=== PATIENT | female | born 1940 | race Caucasian/White ===

== ENCOUNTER 2017-01-07 09:14 | Inpatient (IN) | payer MEDICARE, BC ==
[~2017-01-07 09:14] MED LIST: ACETAMINOPHEN650 M4 PO; ADULT ASPIRIN81 MG PO; ALTACE10 M4 PO; ALTACE10 MG PO; ALTACE2.5 MG; AMBIEN5 MG; AMLODIPINE BESY10 M1 PO; AMOXIL500 M; ARANESP25 MCG/0.4 IJ; ASPIRIN81 M1 PO; BABY ASPIRIN81 MG; BACTROBAN15 GM TP; BACTROBAN22 GM TOP; BENEFIBER DRIN; BL MAXEPA CAPSU1 CAP PO; CATAPRES0.1 M1 PO; CATAPRES0.1 MG; CATAPRES0.1 MG PO; CLONIDINE HCL0.1 M2 PO; COL-RITE100 MG; COLACE-T100 MG; COLACE100 MG PO; COMPAZINE25 MG/SUPP PR; CULTURELLE1 CAP; DELTASONE5 MG PO; DOCUSATE CALCI100 MG PO; DOCUSATE CALCI240 M1 PO; DOCUSATE SODIU100 M2 PO; DULCOLAX10 MG/SUPP; DULCOLAX10 MG/SUPP RC; DUONEB 2.5-0.5 M3 ML IH; DUONEB 2.5-0.5MG3 M1 AERO NEB; ELAVIL25 MG; EPOGEN; FE-TABS325 ( 65 ) PO; FISH OIL 1,0001 CA PO; FISH OIL SOFTGE1 CAP; FOLIC ACID1 M1 PO; FOLIC ACID1 MG; FOLIC ACID1 MG PO; GLUCAGON1 MG/KIT IM; GLYBURIDE2.5 MG; GLYBURIDE2.5 MG PO; GLYBURIDE5 MG; GLYCOLAX14 EA; GUAIFENESIN-CODE5 ML PO; HAIR, SKIN & N1 EACH PO; HIPREX1 G; HUMALOG100 U/ML SQ; HUMALOG100 UNITS/; HUMALOG100 UNITS/ SC; HYDROCHLOROTHIA25 MG; INDERAL LA80 MG; INDERIDE; IRON325 ( 65 ); K-DUR10 MEQ PO; K-DUR20 MEQ PO; KLOR-CON 1010 MEQ; KLOR-CON M2020 MEQ PO; LANTUS100 U/ML; LASIX40 MG PO; LASIX80 MG; LASIX80 MG PO; LEVAQUIN500 M1 PO; LEVAQUIN500 MG; LEVAQUIN750 MG PO; LEVEMIR100 U/M; LEVEMIR100 U/M SC; LEVEMIR100 U/M SQ; LEVEMIR100 U/ML; LEVEMIR100 U/ML SQ; LEVEMIR100 UNITS/ SC; LEVMIR; LEVOTHROID25 MCG PO; LISINOPRIL20 MG; LOMOTIL 2.5-0.1 EACH PO; LOMOTIL1 TA3 PO; LOPRESSOR25 MG/TA1 GT; LOPRESSOR25 MG/TA2 PO; MICRONASE2.5 MG; MILK OF MA400 MG/5 M; MILK OF MAGNESIA PO; MIRALAX17 G2 PO; MIRALAX17 GM PO; MULTIVITAMIN W/1 T PO; MULTIVITAMIN1 TAB; MYCOSTATIN15 GM TP; NEURONTIN300 MG; NORCO 5/325 TAB1 TAB; NORVASC10 M2 PO; NORVASC10 MG; NORVASC10 MG PO; NORVASC5 MG; NOVOLIN R100 U/ML; NOVOLOG100 U/M; NYSTATIN1 EA10 TOP; NYSTATIN15 G1 TOP; NYSTATIN15 G1 TP; NYSTATIN15 GM TP; NYSTEX30 GM TOP; OCUVITE LUTEIN1 CAP PO; OCUVITE SOFTGE1 EACH PO; ONDANSETRON ODT4 M1 PO; OXYGEN; PHOSLO667 M1 PO; PHOSLO667 MG PO; PLAVIX75 M1 PO; POTASSIUM CHLO10 MEQ; PREDNISONE10 M1 PO; PREDNISONE5 MG PO; PRINIVIL10 MG; PROAIR HFA8.5 GM INH; PROTONIX40 MG PO; QUESTRAN LIGH4 G/PKT; RAMIPRIL2.5 MG PO; RENVELA800 M1 PO; SENNA PLUS TAB1 EACH PO; SENNA8.6 M3 PO; SENOKOT8.6 M1 PO; SENOKOT8.6 MG PO; SILVADENE20 GM; SYNTHROID25 MCG PO; SYNTHROID50 MC1 PO; TESSALON PERLE100 M1 PO; THERA M PLUS TA1 TAB PO; TYLENOL SU650 MG/SU1 PR; TYLENOL325 M2 PO; TYLENOL325 MG; TYLENOL325 MG PO; VIT C 500 MG-E500 MG; VITAMIN D; ZITHROMAX250 MG PO; ZOCOR40 MG PO; ZOFRAN4 M2 PO; [UNRECOGNIZED DRUG - OTHER]; [UNRECOGNIZED DRUG - OTHER] OP; [UNRECOGNIZED DRUG - OTHER] PO
[2017-01-07] MEDS ORDERED: RENVELA800 M1 PO (10:19)
[2017-01-07] MEDS ORDERED: PRESERVISION A1 EAC3 PO (10:19)
[2017-01-07] MEDS ORDERED: LOMOTIL 2.5-0.1 EACH PO (10:21)
[2017-01-07] MEDS ORDERED: LEVEMIR100 UNITS/ SC (22:10)
[2017-01-08 06:34] LABS: ANION GAP 18 mmol/L (0-20); BLOOD UREA NITROGEN 44 mg/dl (6-24); CALCIUM 8.6 mg/dl (8.5-10.5); CARBON DIOXIDE-VENOUS 25 mmol/L (22-32); CHLORIDE 98 mmol/l (96-110); CREATININE 5.83 mg/dl (0.50-1.10); GLUCOSE 117 mg/dL (70-110); MAGNESIUM 1.9 mg/dl (1.8-2.6); PHOSPHOROUS 6.2 mg/dl (2.5-4.9); POTASSIUM 4.9 mmol/L (3.7-5.1); SODIUM 136 mmol/L (135-145); eGFR VALUE FOR BLACK 7 mL/Min
[2017-01-09 06:00] LABS: BASO % 0.6 % (0-2); BASO ABSOLUTE COUNT 0.1 tho/cmm (0.0-0.2); EOS % 3.3 % (0-7); EOSINOPHIL ABSOLUTE COUNT 0.4 tho/cmm (0.0-0.7); HCT-HEMATOCRIT 30.7 % (34.0-49.0); HGB-HEMOGLOBIN 9.7 gm/dl (12.0-15.5); IMMATURE GRANULOCYTES ABSOLUTE 0.04 tho/cmm (0-0.03); IMMATURE GRANULOCYTES PERCENT 0.4 % (0-0.3); LYMPH % 22.9 % (20-45); LYMPH ABSOLUTE COUNT 2.5 tho/cmm (0.8-4.5); MCH (MEAN CORPUSCULAR HGB) 30.3 pg (28.0-32.0); MCHC MEAN CORPUSCULAR HGB CONC 31.6 % (32.0-36.0); MCV (MEAN CELL VOLUME) 95.9 fl (82.0-96.0); MONO % 5.5 % (0-12); MONOCYTE ABSOLUTE COUNT 0.6 tho/cmm (0.0-1.2); NEUTROPHIL ABSOLUTE COUNT 7.3 tho/cmm (1.6-8.0); NEUTROPHIL-AUTOMATED 7.3 tho/cmm (1.6-8.0); NEUTROPHILS % 67.3 % (40-80); PLATELET COUNT 225 tho/cmm (150-450); RED CELL DISTRIBUTION WIDTH 16.8 % (12.4-16.4); WHITE BLOOD COUNT 10.8 tho/cmm (4.0-10.0)
[2017-01-09 06:14] LABS: ALBUMIN 2.6 g/dl (3.5-5.0); ANION GAP 14 mmol/L (0-20); BLOOD UREA NITROGEN 27 mg/dl (6-24); C-REACTIVE PROTEIN 9.2 mg/dl (0-0.9); CALCIUM 8.4 mg/dl (8.5-10.5); CARBON DIOXIDE-VENOUS 27 mmol/L (22-32); CHLORIDE 96 mmol/l (96-110); GLUCOSE 135 mg/dL (70-110); PHOSPHOROUS 5.1 mg/dl (2.5-4.9); POTASSIUM 4.1 mmol/L (3.7-5.1); SODIUM 133 mmol/L (135-145); eGFR VALUE FOR BLACK 12 mL/Min
[2017-01-09 06:19] LABS: CREATININE 4.01 mg/dl (0.50-1.10)
[2017-01-10 05:59] LABS: BASO % 0.7 % (0-2); BASO ABSOLUTE COUNT 0.1 tho/cmm (0.0-0.2); EOS % 3.6 % (0-7); EOSINOPHIL ABSOLUTE COUNT 0.4 tho/cmm (0.0-0.7); HCT-HEMATOCRIT 29.7 % (34.0-49.0); HGB-HEMOGLOBIN 9.6 gm/dl (12.0-15.5); IMMATURE GRANULOCYTES ABSOLUTE 0.05 tho/cmm (0-0.03); IMMATURE GRANULOCYTES PERCENT 0.5 % (0-0.3); LYMPH % 23.2 % (20-45); LYMPH ABSOLUTE COUNT 2.2 tho/cmm (0.8-4.5); MCH (MEAN CORPUSCULAR HGB) 30.7 pg (28.0-32.0); MCHC MEAN CORPUSCULAR HGB CONC 32.3 % (32.0-36.0); MCV (MEAN CELL VOLUME) 94.9 fl (82.0-96.0); MEAN PLATELET VOLUME 9.1 cmc (9.4-12.4); MONO % 7.3 % (0-12); MONOCYTE ABSOLUTE COUNT 0.7 tho/cmm (0.0-1.2); NEUTROPHIL ABSOLUTE COUNT 6.2 tho/cmm (1.6-8.0); NEUTROPHIL-AUTOMATED 6.2 tho/cmm (1.6-8.0); NEUTROPHILS % 64.7 % (40-80); PLATELET COUNT 221 tho/cmm (150-450); RED BLOOD COUNT 3.13 mil/cmm (4.00-5.20); RED CELL DISTRIBUTION WIDTH 16.7 % (12.4-16.4); WHITE BLOOD COUNT 9.7 tho/cmm (4.0-10.0)
[2017-01-10 06:14] LABS: ANION GAP 14 mmol/L (0-20); C-REACTIVE PROTEIN 5.5 mg/dl (0-0.9); CALCIUM 8.3 mg/dl (8.5-10.5); CARBON DIOXIDE-VENOUS 26 mmol/L (22-32); CHLORIDE 96 mmol/l (96-110); GLUCOSE 86 mg/dL (70-110); POTASSIUM 4.2 mmol/L (3.7-5.1); SODIUM 132 mmol/L (135-145); eGFR VALUE FOR BLACK 9 mL/Min
[2017-01-10 06:19] LABS: BLOOD UREA NITROGEN 42 mg/dl (6-24); CREATININE 5.19 mg/dl (0.50-1.10)
[2017-01-11 05:33] LABS: BASO % 0.9 % (0-2); BASO ABSOLUTE COUNT 0.1 tho/cmm (0.0-0.2); EOS % 3.5 % (0-7); EOSINOPHIL ABSOLUTE COUNT 0.4 tho/cmm (0.0-0.7); HCT-HEMATOCRIT 30.1 % (34.0-49.0); HGB-HEMOGLOBIN 9.7 gm/dl (12.0-15.5); IMMATURE GRANULOCYTES ABSOLUTE 0.04 tho/cmm (0-0.03); IMMATURE GRANULOCYTES PERCENT 0.4 % (0-0.3); LYMPH % 20.5 % (20-45); LYMPH ABSOLUTE COUNT 2.2 tho/cmm (0.8-4.5); MCH (MEAN CORPUSCULAR HGB) 30.2 pg (28.0-32.0); MCHC MEAN CORPUSCULAR HGB CONC 32.2 % (32.0-36.0); MCV (MEAN CELL VOLUME) 93.8 fl (82.0-96.0); MEAN PLATELET VOLUME 9.2 cmc (9.4-12.4); MONO % 5.1 % (0-12); MONOCYTE ABSOLUTE COUNT 0.5 tho/cmm (0.0-1.2); NEUTROPHIL ABSOLUTE COUNT 7.3 tho/cmm (1.6-8.0); NEUTROPHIL-AUTOMATED 7.3 tho/cmm (1.6-8.0); NEUTROPHILS % 69.6 % (40-80); PLATELET COUNT 233 tho/cmm (150-450); RED BLOOD COUNT 3.21 mil/cmm (4.00-5.20); RED CELL DISTRIBUTION WIDTH 16.5 % (12.4-16.4); WHITE BLOOD COUNT 10.6 tho/cmm (4.0-10.0)
[2017-01-12 06:40] LABS: BASO % 0.6 % (0-2); BASO ABSOLUTE COUNT 0.1 tho/cmm (0.0-0.2); EOS % 2.8 % (0-7); EOSINOPHIL ABSOLUTE COUNT 0.3 tho/cmm (0.0-0.7); HCT-HEMATOCRIT 30.4 % (34.0-49.0); HGB-HEMOGLOBIN 9.8 gm/dl (12.0-15.5); IMMATURE GRANULOCYTES ABSOLUTE 0.04 tho/cmm (0-0.03); IMMATURE GRANULOCYTES PERCENT 0.3 % (0-0.3); LYMPH % 21.1 % (20-45); LYMPH ABSOLUTE COUNT 2.5 tho/cmm (0.8-4.5); MCH (MEAN CORPUSCULAR HGB) 30.5 pg (28.0-32.0); MCHC MEAN CORPUSCULAR HGB CONC 32.2 % (32.0-36.0); MCV (MEAN CELL VOLUME) 94.7 fl (82.0-96.0); MEAN PLATELET VOLUME 9.5 cmc (9.4-12.4); MONO % 7.6 % (0-12); MONOCYTE ABSOLUTE COUNT 0.9 tho/cmm (0.0-1.2); NEUTROPHIL ABSOLUTE COUNT 7.9 tho/cmm (1.6-8.0); NEUTROPHIL-AUTOMATED 7.9 tho/cmm (1.6-8.0); NEUTROPHILS % 67.6 % (40-80); PLATELET COUNT 237 tho/cmm (150-450); RED BLOOD COUNT 3.21 mil/cmm (4.00-5.20); RED CELL DISTRIBUTION WIDTH 16.5 % (12.4-16.4); WHITE BLOOD COUNT 11.7 tho/cmm (4.0-10.0)
[2017-01-13 13:21] LABS: BASO % 0.9 % (0-2); BASO ABSOLUTE COUNT 0.1 tho/cmm (0.0-0.2); EOS % 3.8 % (0-7); EOSINOPHIL ABSOLUTE COUNT 0.3 tho/cmm (0.0-0.7); HGB-HEMOGLOBIN 10.9 gm/dl (12.0-15.5); IMMATURE GRANULOCYTES ABSOLUTE 0.07 tho/cmm (0-0.03); IMMATURE GRANULOCYTES PERCENT 0.8 % (0-0.3); LYMPH % 19.5 % (20-45); LYMPH ABSOLUTE COUNT 1.7 tho/cmm (0.8-4.5); MCH (MEAN CORPUSCULAR HGB) 30.9 pg (28.0-32.0); MCV (MEAN CELL VOLUME) 93.5 fl (82.0-96.0); MONO % 4.1 % (0-12); MONOCYTE ABSOLUTE COUNT 0.4 tho/cmm (0.0-1.2); NEUTROPHIL ABSOLUTE COUNT 6.3 tho/cmm (1.6-8.0); NEUTROPHIL-AUTOMATED 6.3 tho/cmm (1.6-8.0); NEUTROPHILS % 70.9 % (40-80); PLATELET COUNT 234 tho/cmm (150-450); RED BLOOD COUNT 3.53 mil/cmm (4.00-5.20); RED CELL DISTRIBUTION WIDTH 16.4 % (12.4-16.4); WHITE BLOOD COUNT 8.9 tho/cmm (4.0-10.0)
[2017-01-14] MEDS ORDERED: AVELOX400 M1 PO (15:25)
[2017-01-14] MEDS ORDERED: LEVAQUIN500 M1 PO (16:18)
[2017-02-09] MEDS ORDERED: ACETAMINOPHEN PO (17:00)
[2017-04-10] MEDS ORDERED: PROCRIT10000 UNIT SC (15:29)
[2017-04-10] MEDS ORDERED: NUCYNTA ER50 M1 PO (15:42)
[2017-04-10] MEDS ORDERED: HEPARIN SO5000 UNIT1 SC (15:42)
[2017-04-10] MEDS ORDERED: SENNA PLUS TAB1 EAC1 PO (15:42)
[2017-04-10] MEDS ORDERED: VANCOMYCIN HCL500 MG IV (15:43)
[2017-04-10] MEDS ORDERED: OXYCONTIN15 M1 PO (15:43)
[2017-04-10] MEDS ORDERED: BISCOLAX10 MG PR (15:43)
[2017-04-10] MEDS ORDERED: LINZESS145 MC1 PO (15:44)
[2017-04-10] MEDS ORDERED: NOVOLOG100 UNITS/ (15:44)
[2017-04-10] MEDS ORDERED: NEURONTIN100 M1 PO (15:44)
[2017-04-10] MEDS ORDERED: ZOFRAN ODT4 MG SL (15:45)
[2017-05-04] MEDS ORDERED: TYLENOL325 M2 PO (15:00)
[2017-05-04] MEDS ORDERED: ALBUMIN IV (15:01)
[2017-05-04] MEDS ORDERED: DULCOLAX10 MG PR (15:07)
[2017-05-04] MEDS ORDERED: CULTURELLE1 EAC1 PO (15:23)
[2017-05-04] MEDS ORDERED: HUMALOG100 UNIT/1 SC (15:25)
[2017-05-04] MEDS ORDERED: LANTUS100 UNITS/ SC (15:27)
[2017-05-04] MEDS ORDERED: THERA M PLUS TA1 TAB PO (15:28)
[2017-05-04] MEDS ORDERED: SODIUM CHLORIDE IV ×3 (15:30→15:50)
[2017-05-04] MEDS ORDERED: NORMAL SALINE FLUSH IV ×2 (15:31→15:45)
[2017-05-04] MEDS ORDERED: HEPARIN SO1000 UNIT2 IV (15:38)
[2017-05-04] MEDS ORDERED: GLUCAGON HCL1 MG IM (15:41)
[2017-05-04] MEDS ORDERED: LOMOTIL 2.5-0.1 EACH PO (15:42)
[2017-05-06] MEDS ORDERED: GLUTOSE PO (16:22)
[2017-05-06] MEDS ORDERED: DEXTROSE 525 GM/501 IV (16:23)
== END 2017-01-14 16:30 | DRG 570 ==
LOC: WCC 09:14 → BURN 12:12
PROVIDERS: Internal Medicine Infectious Disease; Internal Medicine Nephrology; Physician Assistant; ADMIT Surgery
PROC: 0JBQ0ZZ Excision of Right Foot Subcutaneous Tissue and Fascia, Open Approach (ICD-10-PCS; principal; 2017-01-09)
PROC: 0JRQ0KZ Replacement of Right Foot Subcutaneous Tissue and Fascia with Nonautologous Tissue Substitute, Open Approach (ICD-10-PCS; 2017-01-09)
PROC: 03783ZZ Dilation of Left Brachial Artery, Percutaneous Approach (ICD-10-PCS; 2017-01-10)
PROC: 037Y3ZZ Dilation of Upper Artery, Percutaneous Approach (ICD-10-PCS; 2017-01-10)
PROC: 0JBQ0ZZ Excision of Right Foot Subcutaneous Tissue and Fascia, Open Approach (ICD-10-PCS; 2017-01-13)
PROC: 0JRQ0KZ Replacement of Right Foot Subcutaneous Tissue and Fascia with Nonautologous Tissue Substitute, Open Approach (ICD-10-PCS; 2017-01-13)
DX: L89.513 Pressure ulcer of right ankle, stage 3 (principal); N18.6 End stage renal disease; E11.42 Type 2 diabetes mellitus with diabetic polyneuropathy; I12.0 Hypertensive chronic kidney disease with stage 5 chronic kidney disease or end stage renal disease; I48.0 Paroxysmal atrial fibrillation; L03.115 Cellulitis of right lower limb; I73.9 Peripheral vascular disease, unspecified; I70.208 Unspecified atherosclerosis of native arteries of extremities, other extremity; G47.33 Obstructive sleep apnea (adult) (pediatric); D63.1 Anemia in chronic kidney disease; I34.0 Nonrheumatic mitral (valve) insufficiency; I35.0 Nonrheumatic aortic (valve) stenosis; Z95.0 Presence of cardiac pacemaker; E03.9 Hypothyroidism, unspecified; E66.9 Obesity, unspecified; Z99.2 Dependence on renal dialysis; Z89.512 Acquired absence of left leg below knee
CPT/HCPCS: C1725; C1769; G0463; J0171; J0885; J1580; J1815; J3010; J3370; Q4100; Q4104; Q9967

== ENCOUNTER 2017-01-26 13:54 | Emergency (ER) | payer MEDICARE, BC ==
[~2017-01-26 13:54] MED LIST changes: +AVELOX400 M1 PO; +PRESERVISION A1 EAC3 PO
[2017-02-09] MEDS ORDERED: ACETAMINOPHEN PO (17:00)
[2017-04-10] MEDS ORDERED: PROCRIT10000 UNIT SC (15:29)
[2017-04-10] MEDS ORDERED: HEPARIN SO5000 UNIT1 SC (15:42)
[2017-04-10] MEDS ORDERED: SENNA PLUS TAB1 EAC1 PO (15:42)
[2017-04-10] MEDS ORDERED: NUCYNTA ER50 M1 PO (15:42)
[2017-04-10] MEDS ORDERED: VANCOMYCIN HCL500 MG IV (15:43)
[2017-04-10] MEDS ORDERED: BISCOLAX10 MG PR (15:43)
[2017-04-10] MEDS ORDERED: OXYCONTIN15 M1 PO (15:43)
[2017-04-10] MEDS ORDERED: NEURONTIN100 M1 PO (15:44)
[2017-04-10] MEDS ORDERED: NOVOLOG100 UNITS/ (15:44)
[2017-04-10] MEDS ORDERED: LINZESS145 MC1 PO (15:44)
[2017-04-10] MEDS ORDERED: ZOFRAN ODT4 MG SL (15:45)
[2017-05-04] MEDS ORDERED: TYLENOL325 M2 PO (15:00)
[2017-05-04] MEDS ORDERED: ALBUMIN IV (15:01)
[2017-05-04] MEDS ORDERED: DULCOLAX10 MG PR (15:07)
[2017-05-04] MEDS ORDERED: CULTURELLE1 EAC1 PO (15:23)
[2017-05-04] MEDS ORDERED: HUMALOG100 UNIT/1 SC (15:25)
[2017-05-04] MEDS ORDERED: LANTUS100 UNITS/ SC (15:27)
[2017-05-04] MEDS ORDERED: THERA M PLUS TA1 TAB PO (15:28)
[2017-05-04] MEDS ORDERED: SODIUM CHLORIDE IV ×3 (15:30→15:50)
[2017-05-04] MEDS ORDERED: NORMAL SALINE FLUSH IV ×2 (15:31→15:45)
[2017-05-04] MEDS ORDERED: HEPARIN SO1000 UNIT2 IV (15:38)
[2017-05-04] MEDS ORDERED: GLUCAGON HCL1 MG IM (15:41)
[2017-05-04] MEDS ORDERED: LOMOTIL 2.5-0.1 EACH PO (15:42)
[2017-05-06] MEDS ORDERED: GLUTOSE PO (16:22)
[2017-05-06] MEDS ORDERED: DEXTROSE 525 GM/501 IV (16:23)
== END 2017-01-26 15:46 ==
LOC: EDMED 13:54
DX: S41.112A Laceration without foreign body of left upper arm, initial encounter (principal); I48.91 Unspecified atrial fibrillation; E11.22 Type 2 diabetes mellitus with diabetic chronic kidney disease; N18.6 End stage renal disease; Z79.4 Long term (current) use of insulin; Z99.2 Dependence on renal dialysis; Z79.899 Other long term (current) drug therapy; X58.XXXA Exposure to other specified factors, initial encounter